=== PATIENT | male | born 1995 | race Caucasian/White ===

== ENCOUNTER 2020-09-02 13:20 | Observation (INO) | payer OTHER ==
--- NOTE | 2020-09-02 13:38 | ED ---
Abdominal Pain HPI - General Chief Complaint: Abdominal Pain Stated Complaint: constipation Time Seen by Provider: 09/02/20 13:25 Source: patient Mode of arrival: ambulatory Limitations: no limitations - History of Present Illness Initial Comments: Is a 24-year-old male who presents emergency department for abdominal pain for the last 3-4 days. The patient states that he's been having intermittent episodes of intense right-sided abdominal pain for the last 3 or 4 days. The patient states he is also not had a normal bowel movement the last 3 or 4 days as well. He states that he believes that he is constipated. He does admit to passing flatus however. He states is been no blood in the stool. He tried using some stool softeners however states that this has not given him any relief. The patient states that he did use an inflatable toys in his rectum therefore days ago when he believes that this is what causes problems. He states these use this in the past without any issue. He admits to vomiting 3 days ago that he believes is from the pain. States the pain is worse with bending over. No fevers or chills. No dysuria or hematuria. No other acute complaints. - Related Data Home Medications Medication Instructions Recorded Confirmed No Known Home Medications 09/02/20 09/02/20 Allergies Allergy/AdvReac Type Severity Reaction Status Date / Time No Known Allergies Allergy Verified 09/02/20 15:29 Review of Systems ROS Statement: Those systems with pertinent positive or pertinent negative responses have been documented in the HPI. ROS Other: All systems not noted in ROS Statement are negative. Past Medical History Additional Past Medical History / Comment(s): back pain, History of Any Multi-Drug Resistant Organisms: None Reported Past Surgical History: No Surgical Hx Reported Past Psychological History: No Psychological Hx Reported Smoking Status: Current every day smoker Past Alcohol Use History: None Reported Past Drug Use History: Marijuana General Exam - General Exam Comments Initial Comments: Constitutional: Awake alert Appears comfortable Head: Normocephalic atraumatic Eyes: no conjunctival injection No scleral icterus EOMI Neck: No JVD Supple Heart: Regular rate rhythm normal S1-S2 no murmurs Lungs: Clear to auscultation bilaterally No wheezing No rales Abdomen: Soft nondistended ears tenderness to palpation in the right lower quadrant over McBurney's point without rebound or guarding Extremities: Non edematous DP pulses intact Radial pulses intact Neuro: A&Ox3 No focal neurologic deficits Psych: Appropriate mood and affect Limitations: no limitations Course Vital Signs 09/02/20 09/02/20 13:21 15:24 Temperature 98.0 F 99.3 F Pulse Rate 92 95 Respiratory 18 18 Rate Blood Pressure 135/80 152/89 O2 Sat by Pulse 100 98 Oximetry Medical Decision Making - Medical Decision Making Is a 24-year-old male presents emergency room for right lower quadrant abdominal pain. Patient had blood work performed and a CAT scan consistent with appendicitis. The patient's vitals are stable throughout his ED stay. He did complain of a little bit of worsening pains was given morphine. He started on Rocephin and Flagyl for antibiotic coverage. Covid will be performed. Spoke with Dr. Silva who accepted the patient for admission will likely take for surgery later today. - Lab Data Result diagrams: 09/02/20 13:38 09/02/20 13:38 Lab Results 09/02/20 09/02/20 09/02/20 Range/Units 13:38 13:38 13:38 WBC 14.0 H (3.8-10.6) k/uL RBC 5.28 (4.30-5.90) m/uL Hgb 16.3 (13.0-17.5) gm/dL Hct 47.1 (39.0-53.0) % MCV 89.1 (80.0-100.0) fL MCH 30.9 (25.0-35.0) pg MCHC 34.7 (31.0-37.0) g/dL RDW 12.1 (11.5-15.5) % Plt Count 193 (150-450) k/uL MPV 8.2 Neutrophils % 85 % Lymphocytes % 9 % Monocytes % 4 % Eosinophils % 1 % Basophils % 0 % Neutrophils # 12.0 H (1.3-7.7) k/uL Lymphocytes # 1.2 (1.0-4.8) k/uL Monocytes # 0.5 (0-1.0) k/uL Eosinophils # 0.2 (0-0.7) k/uL Basophils # 0.0 (0-0.2) k/uL Sodium 139 (137-145) mmol/L Potassium 4.0 (3.5-5.1) mmol/L Chloride 104 (98-107) mmol/L Carbon Dioxide 24 (22-30) mmol/L Anion Gap 11 mmol/L BUN 11 (9-20) mg/dL Creatinine 1.16 (0.66-1.25) mg/dL Est GFR (CKD-EPI)AfAm >90 (>60 ml/min/1.73 sqM) Est GFR (CKD-EPI)NonAf 90 (>60 ml/min/1.73 sqM) Glucose 118 H (74-99) mg/dL Calcium 10.1 (8.4-10.2) mg/dL Total Bilirubin 1.2 (0.2-1.3) mg/dL AST 20 (17-59) U/L ALT 16 (4-49) U/L Alkaline Phosphatase 78 (38-126) U/L Total Protein 7.7 (6.3-8.2) g/dL Albumin 4.7 (3.5-5.0) g/dL Urine Color Yellow Urine Appearance Clear (Clear) Urine pH 6.0 (5.0-8.0) Ur Specific [place] 1.024 (1.001-1.035) Urine Protein Trace H (Negative) Urine Glucose (UA) Negative (Negative) Urine Ketones Negative (Negative) Urine Blood Negative (Negative) Urine Nitrite Negative (Negative) Urine Bilirubin Negative (Negative) Urine Urobilinogen <2.0 (<2.0) mg/dL Ur Leukocyte Esterase Negative (Negative) Disposition Clinical Impression: Acute appendicitis Disposition: ADMITTED IP TO THIS [facility] Condition: Stable
[2020-09-02 13:49] LABS: Appearance,Urine Clear (Clear); Bilirubin,Urine Negative (Negative); Blood,Urine Negative (Negative); Color,Urine Yellow; Glucose,Urine (UA) Negative (Negative); Ketones,Urine Negative (Negative); Leukocyte Esterase,Urine Negative (Negative); Nitrite,Urine Negative (Negative); Protein,Urine Trace (Negative); Specific Gravity,Urine 1.024 (1.001-1.035); Urobilinogen,Urine <2.0 mg/dL (<2.0)
[2020-09-02 14:11] LABS: Basophils % (A) 0 %; Eosinophils # (A) 0.2 k/uL (0-0.7); Eosinophils % (A) 1 %; HCT 47.1 % (39.0-53.0); HGB 16.3 gm/dL (13.0-17.5); Lymphocytes # (A) 1.2 k/uL (1.0-4.8); Lymphocytes % (A) 9 %; MCH 30.9 pg (25.0-35.0); MCHC 34.7 g/dL (31.0-37.0); MCV 89.1 fL (80.0-100.0); Mean Platelet Volume 8.2; Monocytes # (A) 0.5 k/uL (0-1.0); Monocytes % (A) 4 %; Neutrophils % (A) 85 %; Platelet Count 193 k/uL (150-450); RBC 5.28 m/uL (4.30-5.90); RDW 12.1 % (11.5-15.5)
[2020-09-02 14:24] LABS: ALT 16 U/L (4-49); AST 20 U/L (17-59); African American GFR (CKD) >90 (>60 ml/min/1.73 sqM); Albumin 4.7 g/dL (3.5-5.0); Alkaline Phosphatase 78 U/L (38-126); Anion Gap 11 mmol/L; Blood Urea Nitrogen 11 mg/dL (9-20); Calcium 10.1 mg/dL (8.4-10.2); Carbon Dioxide 24 mmol/L (22-30); Chloride 104 mmol/L (98-107); Glucose 118 mg/dL (74-99); Non-African American GFR(CKD) 90 (>60 ml/min/1.73 sqM); Sodium 139 mmol/L (137-145); Total Bilirubin 1.2 mg/dL (0.2-1.3); Total Protein 7.7 g/dL (6.3-8.2)
--- NOTE | 2020-09-02 14:45 | CT ---
EXAMINATION TYPE: CT abdomen pelvis w con DATE OF EXAM: 09/02/2020 COMPARISON: None HISTORY: Right lower quadrant pain. CT DLP: 1081.7 mGycm Automated exposure control for dose reduction was used. TECHNIQUE: Helical acquisition of images was performed from the lung bases through the pelvis. CONTRAST: Performed without Oral Contrast and with IV Contrast, patient injected with 100 mL of Isovue 300. FINDINGS: The lung bases are clear. The gallbladder is normal. There is no biliary ductal dilatation. The liver, pancreas, spleen and adr enal glands are normal. The kidneys excrete contrast promptly and symmetrically and there is no solid renal mass or hydroneph rosis. There is no retroperitoneal adenopathy or hemorrhage in the caliber of the abdominal aorta is normal. There is no free intraperitoneal air. There is an appendicolith in the appendix is dilated with a thickened wall and periappendiceal inflam mation consistent with acute appendicitis. There is no bowel obstruction. The osseous structures and soft tissues are unremarkable. IMPRESSION: Findings consistent with acute appendicitis without abscess, free air or free fluid.
[2020-09-02] MEDS ORDERED: MORPHINE SULFATE 4 MG/ML SYRINGE IVP STA (15:23)
[2020-09-02] MEDS ORDERED: metroNIDAZOLE-NS PMX 500 MG in SALINE 1 100ML.BAG IVPB STA (15:23)
[2020-09-02] MEDS ORDERED: NALOXONE 0.4 MG/ML 1 ML VIAL IV PRN (15:26)
[2020-09-02] MEDS: SODIUM CHLORIDE 0.9% 1,000 ML IV SCH ×2 (15:31→23:49)
[2020-09-02 16:25] LABS: Partial Thromboplastin Time 25.2 sec (22.0-30.0); Prothrombin Time 10.8 sec (9.0-12.0)
[2020-09-02] MEDS ORDERED: LIDOCAINE 1%-EPI 1:100,000 20 ML VIAL SQ ONE ×2 (17:01→17:30)
[2020-09-02] MEDS ORDERED: LACTATED RINGERS 1,000 ML IV ONE (17:12)
[2020-09-02] MEDS ORDERED: MIDAZOLAM 2 MG/2 ML VIAL ONE (17:13)
[2020-09-02] MEDS ORDERED: HEPARIN SODIUM,PORCINE 5,000 UNIT/ML 1 ML VIAL ONE (17:13)
[2020-09-02] MEDS ORDERED: fentaNYL (PF) 50 MCG/ML 2 ML AMP ONE (17:13)
[2020-09-02] MEDS ORDERED: KETOROLAC 15 MG/ML 1 ML VIAL ONE (17:13)
[2020-09-02] MEDS ORDERED: DEXAMETHASONE SOD PHOSPHATE 10 MG/ML 1 ML VIAL ONE (17:13)
[2020-09-02] MEDS ORDERED: ROCURONIUM 10 MG/ML (5 ML VIAL) IV ONE (17:13)
[2020-09-02] MEDS ORDERED: ONDANSETRON 4 MG/2 ML VIAL ONE (17:13)
[2020-09-02] MEDS ORDERED: LIDOCAINE 1% INJ 10MG/ML (20 ML MDV) ONE (17:13)
[2020-09-02] MEDS ORDERED: PROPOFOL 10 MG/ML 20 ML VIAL IV ONE (17:13)
[2020-09-02] MEDS ORDERED: HYDROmorphone (PF) 1 MG/ML ONE (17:13)
--- NOTE | 2020-09-02 17:18 | P.GSHP ---
History of Present Illness H&P Date: 09/02/20 This is a 24-year-old male that presented to the emergency department with complaints of abdominal pain. It has been going on for approximately 3 days. The patient initially thought it was constipation. He states that the pain is mostly in the right lower quadrant. He complains of some nausea and 1 emesis episode. He denies any obvious fevers. He states he has a decreased appetite. On workup, CT of the abdomen and pelvis was performed with concerns for acute appendicitis due to inflammatory changes around the appendix. He is also noted to have a mild leukocytosis. He denies having any previous surgical history. - Review of Systems All systems: negative Past Medical History Additional Past Medical History / Comment(s): back pain, History of Any Multi-Drug Resistant Organisms: None Reported Past Surgical History: No Surgical Hx Reported Past Psychological History: No Psychological Hx Reported Smoking Status: Current every day smoker Past Alcohol Use History: None Reported Past Drug Use History: Marijuana Medications and Allergies Home Medications Medication Instructions Recorded Confirmed Type No Known Home Medications 09/02/20 09/02/20 History Allergies Allergy/AdvReac Type Severity Reaction Status Date / Time No Known Allergies Allergy Verified 09/02/20 15:29 Surgical - Exam Osteopathic Statement: *. No significant issues noted on an osteopathic structural exam other than those noted in the History and Physical/Consult. Vital Signs Temp Pulse Resp BP Pulse Ox 98.0 F 92 18 135/80 100 09/02/20 13:21 09/02/20 13:21 09/02/20 13:21 09/02/20 13:21 09/02/20 13:21 - General well nourished, no distress - Eyes PERRL - Neck trachea midline - Respiratory normal respiratory effort - Abdomen Soft, tender to palpation in right lower quadrant, nondistended, no rebound, no guarding - Psychiatric oriented to time, oriented to person, oriented to place Results - Labs 09/02/20 13:38 09/02/20 13:38 Abnormal Lab Results - Last 24 Hours (Table) 09/02/20 09/02/20 09/02/20 Range/Units 13:38 13:38 13:38 WBC 14.0 H (3.8-10.6) k/uL Neutrophils # 12.0 H (1.3-7.7) k/uL Glucose 118 H (74-99) mg/dL Urine Protein Trace H (Negative) Diabetes panel 09/02/20 Range/Units 13:38 Sodium 139 (137-145) mmol/L Potassium 4.0 (3.5-5.1) mmol/L Chloride 104 (98-107) mmol/L Carbon Dioxide 24 (22-30) mmol/L BUN 11 (9-20) mg/dL Creatinine 1.16 (0.66-1.25) mg/dL Glucose 118 H (74-99) mg/dL Calcium 10.1 (8.4-10.2) mg/dL AST 20 (17-59) U/L ALT 16 (4-49) U/L Alkaline Phosphatase 78 (38-126) U/L Total Protein 7.7 (6.3-8.2) g/dL Albumin 4.7 (3.5-5.0) g/dL Calcium panel 09/02/20 Range/Units 13:38 Calcium 10.1 (8.4-10.2) mg/dL Albumin 4.7 (3.5-5.0) g/dL Pituitary panel 09/02/20 Range/Units 13:38 Sodium 139 (137-145) mmol/L Potassium 4.0 (3.5-5.1) mmol/L Chloride 104 (98-107) mmol/L Carbon Dioxide 24 (22-30) mmol/L BUN 11 (9-20) mg/dL Creatinine 1.16 (0.66-1.25) mg/dL Glucose 118 H (74-99) mg/dL Calcium 10.1 (8.4-10.2) mg/dL Adrenal panel 09/02/20 Range/Units 13:38 Sodium 139 (137-145) mmol/L Potassium 4.0 (3.5-5.1) mmol/L Chloride 104 (98-107) mmol/L Carbon Dioxide 24 (22-30) mmol/L BUN 11 (9-20) mg/dL Creatinine 1.16 (0.66-1.25) mg/dL Glucose 118 H (74-99) mg/dL Calcium 10.1 (8.4-10.2) mg/dL Total Bilirubin 1.2 (0.2-1.3) mg/dL AST 20 (17-59) U/L ALT 16 (4-49) U/L Alkaline Phosphatase 78 (38-126) U/L Total Protein 7.7 (6.3-8.2) g/dL Albumin 4.7 (3.5-5.0) g/dL Assessment and Plan Plan: 24-year-old male with acute appendicitis. Patient has been started on IV antibiotics and kept nothing by mouth. Plan is for appendectomy. Risks, benefits and alternatives were provided to the patient. Further recommend patient after procedure.
[2020-09-02] MEDS ORDERED: MORPHINE SULFATE 2 MG/ML SYRINGE IVP PRN (18:05)
--- NOTE | 2020-09-02 18:09 | P.OP ---
Date of Procedure: 09/02/20 Preoperative Diagnosis: Acute appendicitis Postoperative Diagnosis: Acute appendicitis Procedure(s) Performed: Laparoscopic appendectomy Anesthesia: KEVON Surgeon: Arlen Silva Pathology: other (Appendix) Condition: stable Disposition: floor Indications for Procedure: 22-year-old male presented to the emergency department with complaints of right lower quadrant abdominal pain. On workup, he was found to have acute appendicitis. Plan for appendectomy was made. Risks, benefits and alternatives were provided to the patient. He did provide consent prior to attending the operating suite. Operative Findings: Inflamed and thickened appendix Description of Procedure: The patient was brought into the operating suite and placed in supine position on the operating table. Sedation was provided by anesthesia and the patient underwent endotracheal intubation. The patient was then prepped and draped in regular sterile fashion. A super umbilical incision was made dissection was carried to the fascia. The fascia was incised and a 12 mm trocar was placed. Pneumoperitoneum was achieved. The patient was then placed in appropriate position and a 5 mm port was placed in the suprapubic region and in the left lower quadrant. The appendix was clearly visualized and was noted to be inflamed and thickened. The appendix was grasped and elevated and a window was created between the appendix and the mesoappendix using a [place] dissector. LigaSure device was then used to divide the mesoappendix from the appendix. The stasis was maintained during this portion of the procedure. The base of the appendix was then clearly visualized. A stapler was fired across the base of the appendix. The appendix was then placed in an Endo Catch bag and removed from the abdomen from the 12 mm trocar site. Interrogation of the staple line revealed some mild bleeding. This was corrected with light cautery. Hemostasis was noted to be maintained at this point. Irrigation was placed in the right lower quadrant and suctioned. At this point, the pulmonary millimeter fascial incision site was closed using a 0 Vicryl suture under direct visualization and a Robert-Kevin device. Pneumoperitoneum was then evacuated and all ports removed from the abdomen. All skin incisions were closed with 4-0 Vicryl subcutaneous suture. Sterile dressing was applied. The patient was awakened in the operating suite and taken to postanesthesia care unit in stable condition.
[2020-09-02 19:20] VITALS: RESP 18
[2020-09-02] MEDS: HYDROcodone/APAP 5-325MG 1 EACH TAB PO PRN (19:48)
[2020-09-02] MEDS: PIPERACILLIN-TAZOBACTAM 3.375 GM in SODIUM CHLORIDE 0.9% 100 ML IVPB SCH (23:49)
[2020-09-02] MEDS: KETOROLAC 15 MG/ML 1 ML VIAL IVP SCH (23:50)
[2020-09-02] MEDS: HEPARIN SODIUM,PORCINE/PF 5,000 UNIT/0.5 ML SYRINGE SQ SCH (23:50)
[2020-09-03] MEDS: HYDROcodone/APAP 5-325MG 1 EACH TAB PO PRN ×3 (01:22→14:06)
[2020-09-03] MEDS: KETOROLAC 15 MG/ML 1 ML VIAL IVP SCH ×2 (05:35→11:06)
[2020-09-03 08:06] VITALS: BP 153/71; PULSE 68; TEMP 98.5
[2020-09-03] MEDS: PIPERACILLIN-TAZOBACTAM 3.375 GM in SODIUM CHLORIDE 0.9% 100 ML IVPB SCH (08:09)
[2020-09-03] MEDS: HEPARIN SODIUM,PORCINE/PF 5,000 UNIT/0.5 ML SYRINGE SQ SCH (08:09)
[2020-09-03] MEDS: SODIUM CHLORIDE 0.9% 1,000 ML IV SCH (08:09)
[2020-09-03 09:04] LABS: Basophils # (A) 0.01 X 10*3/uL (0.00-0.10); Basophils % (A) 0.1 %; Eosinophils # (A) 0 X 10*3/uL (0.04-0.35); Eosinophils % (A) 0 %; HCT 45.1 % (39.6-50.0); Lymphocytes # (A) 0.86 X 10*3/uL (0.90-5.00); Lymphocytes % (A) 6.2 %; MCH 30.1 pg (27.0-32.0); MCHC 33.3 g/dL (32.0-37.0); MCV 90.6 fL (80.0-97.0); Mean Platelet Volume 11.7 fL (9.5-12.2); Monocytes # (A) 0.67 X 10*3/uL (0.20-1.00); Monocytes % (A) 4.8 %; Neutrophils # (A) 12.32 X 10*3/uL (1.80-7.70); Neutrophils % (A) 88.5 %; Platelet Count 225 X 10*3/uL (140-440); RBC 4.98 X 10*6/uL (4.40-5.60); RDW 12.6 % (11.5-14.5); WBC 13.92 X 10*3/uL (4.50-10.00)
[2020-09-03] MEDS ORDERED: DOCUSATE 100 MG CAP PO PRN (09:32)
[2020-09-03 09:33] LABS: African American GFR (CKD) 98.9 (60.0-200.0); Anion Gap 9.9 mmol/L (4.00-12.00); BUN/Creat Ratio 8.33 Ratio (12.00-20.00); Calcium 9.6 mg/dL (8.7-10.3); Carbon Dioxide 23.1 mmol/L (21.6-31.8); Non-African American GFR(CKD) 85.3 (60.0-200.0); Potassium 4.2 mmol/L (3.5-5.5)
--- NOTE | 2020-09-03 09:35 | P.DS ---
Providers Date of admission: 09/02/20 15:26 Attending physician: Arlen Silva DO Primary care physician: Sheldon [facility] Course: 24-year-old male presented to the emergency department with complaints of abdominal pain. On workup, he was found to have acute appendicitis. He was taken for laparoscopic appendectomy. Postoperatively, patient was sent to the medical surgical floor. He did receive IV antibiotics. His pain level did improve. He began tolerating diet. No evidence of fevers or tachycardia. Patient was notably surgically stable for discharge. Plan is for discharge with oral narcotic pain medication and 1 week of oral antibiotics. Patient is aware to return to the hospital if any increase in pain, fevers or abnormal recovery. Assessment: Abdomen is soft, appropriate tenderness, nondistended, no rebound, no guarding, incision sites are clean, dry and intact Procedures: Laparoscopic appendectomy Patient Condition at Discharge: Stable Plan - Discharge Summary New Discharge Prescriptions: New Docusate [Colace] 100 mg PO BID #20 capsule HYDROcodone/APAP 5-325MG [[place] 5-325] 1 tab PO Q6HR PRN 3 Days #12 tab PRN Reason: Pain Amoxic-Pot Clav 500-125 mg [Augmentin 500-125 mg] 1 tab PO Q12HR 7 Days #14 tab Discharge Medication List Amoxic-Pot Clav 500-125 mg [Augmentin 500-125 mg] 1 tab PO Q12HR 7 Days #14 tab 09/03/20 [Rx] Docusate [Colace] 100 mg PO BID #20 capsule 09/03/20 [Rx] HYDROcodone/APAP 5-325MG [[place] 5-325] 1 tab PO Q6HR PRN 3 Days #12 tab 09/03/20 [Rx] Follow up Appointment(s)/Referral(s): Sheldon Sullivan MD [Primary Care Provider] - 1-2 days Arlen Silva DO [Doctor of Osteopathic Medicine] - 2 Weeks Patient Instructions/Handouts: Laparoscopic Appendectomy (DC) Activity/Diet/Wound Care/Special Instructions: No lifting greater than 5 pounds Okay to begin to shower, do not scrub on incisions Take narcotic pain medication as necessary. If taking narcotic pain medication, take stool softener. Take antibiotic as prescribed. Discharge Disposition: HOME SELF-CARE
== END 2020-09-03 14:30 | disposition home or self-care (01) ==
LOC: EC 13:20 → 6NMEDSUR 15:26
PROVIDERS: ADMIT Surgery; ATTEND Surgery
DX: K35.80 Unspecified acute appendicitis (principal); K59.00 Constipation, unspecified; M54.9 Dorsalgia, unspecified; F17.200 Nicotine dependence, unspecified, uncomplicated; Z20.822 Contact with and (suspected) exposure to COVID-19
CPT/HCPCS: 44970; 99285; 36415; 88304; 80053; 80048; 85025 ×2; 85610; 85730; 81003; 87636; 74177; G0378 ×2; J2543 ×2; J2250; J2270; J1644 ×3; J1100; J2405; J2001; J0696; J3010; J1170; J1885 ×2; J2704; Q9967

== ENCOUNTER 2020-09-04 20:52 | Emergency (ER) | payer OTHER ==
--- NOTE | 2020-09-04 22:36 | XR ---
EXAMINATION TYPE: XR chest 2V DATE OF EXAM: 09/04/2020 COMPARISON: None HISTORY: Short of breath TECHNIQUE: 2 views FINDINGS: Heart and mediastinum are normal. Lungs are clear. Diaphragm is normal. There is small amou nt of free air under the right diaphragm related to recent surgery. The bony thorax is intact. IMPRESSION: No cardiopulmonary disease.
--- NOTE | 2020-09-04 22:39 | ED ---
SOB HPI - General Chief Complaint: Shortness of Breath Stated Complaint: SOB Time Seen by Provider: 09/04/20 21:10 Source: patient Mode of arrival: ambulatory Limitations: no limitations - History of Present Illness Initial Comments: 24-year-old male presents emergency room with reported shortness of breath. Patient did have an appendectomy 2 days ago. States that today he had shortness of breath and therefore wanted to get checked out. Denies cough, fevers or chills. No chest pain. No history of DVT or PE. No lower extremity swelling. No other alleviating, precipitating or modifying factors. - Related Data Home Medications Medication Instructions Recorded Confirmed Docusate [Colace] 100 mg PO BID PRN 09/04/20 09/04/20 Previous Rx's Medication Instructions Recorded Amoxic-Pot Clav 500-125 mg 1 tab PO Q12HR 7 Days #14 tab 09/03/20 [Augmentin 500-125 mg] HYDROcodone/APAP 5-325MG [[place] 1 tab PO Q6HR PRN 3 Days #12 tab 09/03/20 5-325] Allergies Allergy/AdvReac Type Severity Reaction Status Date / Time No Known Allergies Allergy Verified 09/04/20 22:40 Review of Systems ROS Statement: Those systems with pertinent positive or pertinent negative responses have been documented in the HPI. ROS Other: All systems not noted in ROS Statement are negative. Past Medical History Past Medical History: No Reported History Additional Past Medical History / Comment(s): back pain,scoliosis History of Any Multi-Drug Resistant Organisms: None Reported Past Surgical History: Appendectomy Past Anesthesia/Blood Transfusion Reactions: No Reported Reaction Past Psychological History: Anxiety, Depression Smoking Status: Current every day smoker Past Alcohol Use History: None Reported Past Drug Use History: Marijuana - Past Family History Mother Family Medical History: Hypertension Father Family Medical History: Hypertension General Exam Limitations: no limitations Course Vital Signs 09/04/20 09/04/20 21:09 22:19 Temperature 97.7 F Pulse Rate 64 Respiratory 18 20 Rate Blood Pressure 135/84 O2 Sat by Pulse 100 Oximetry Medical Decision Making - Medical Decision Making Upon arrival patient's placed into room 5. There was seen physical exam was performed. Laboratory studies conducted. D-dimer negative. Chest x-ray demonstrates no acute process. Patient is saturating percent without increased work of breathing. He'll be discharged home at this time. Follow up with his surgeon as directed. Return to the emergency room for any new or worsening symptoms. Patient was discharged in stable condition - Lab Data Result diagrams: 09/04/20 22:33 09/04/20 22:33 Lab Results 09/04/20 09/04/20 09/04/20 Range/Units 22:33 22:33 22:33 WBC 7.2 (3.8-10.6) k/uL RBC 5.09 (4.30-5.90) m/uL Hgb 15.2 (13.0-17.5) gm/dL Hct 45.5 (39.0-53.0) % MCV 89.3 (80.0-100.0) fL MCH 29.9 (25.0-35.0) pg MCHC 33.5 (31.0-37.0) g/dL RDW 12.7 (11.5-15.5) % Plt Count 221 (150-450) k/uL MPV 8.5 Neutrophils % 68 % Lymphocytes % 22 % Monocytes % 6 % Eosinophils % 1 % Basophils % 0 % Neutrophils # 4.9 (1.3-7.7) k/uL Lymphocytes # 1.6 (1.0-4.8) k/uL Monocytes # 0.5 (0-1.0) k/uL Eosinophils # 0.1 (0-0.7) k/uL Basophils # 0.0 (0-0.2) k/uL D-Dimer 0.47 (<0.60) mg/L FEU Sodium 140 (137-145) mmol/L Potassium 3.9 (3.5-5.1) mmol/L Chloride 105 (98-107) mmol/L Carbon Dioxide 24 (22-30) mmol/L Anion Gap 11 mmol/L BUN 13 (9-20) mg/dL Creatinine 1.09 (0.66-1.25) mg/dL Est GFR (CKD-EPI)AfAm >90 (>60 ml/min/1.73 sqM) Est GFR (CKD-EPI)NonAf >90 (>60 ml/min/1.73 sqM) Glucose 98 (74-99) mg/dL Plasma Lactic Acid Karel (0.7-2.0) mmol/L Calcium 10.2 (8.4-10.2) mg/dL Total Bilirubin 0.8 (0.2-1.3) mg/dL AST 25 (17-59) U/L ALT 16 (4-49) U/L Alkaline Phosphatase 69 (38-126) U/L Total Protein 7.4 (6.3-8.2) g/dL Albumin 4.6 (3.5-5.0) g/dL 09/04/20 Range/Units 22:33 WBC (3.8-10.6) k/uL RBC (4.30-5.90) m/uL Hgb (13.0-17.5) gm/dL Hct (39.0-53.0) % MCV (80.0-100.0) fL MCH (25.0-35.0) pg MCHC (31.0-37.0) g/dL RDW (11.5-15.5) % Plt Count (150-450) k/uL MPV Neutrophils % % Lymphocytes % % Monocytes % % Eosinophils % % Basophils % % Neutrophils # (1.3-7.7) k/uL Lymphocytes # (1.0-4.8) k/uL Monocytes # (0-1.0) k/uL Eosinophils # (0-0.7) k/uL Basophils # (0-0.2) k/uL D-Dimer (<0.60) mg/L FEU Sodium (137-145) mmol/L Potassium (3.5-5.1) mmol/L Chloride (98-107) mmol/L Carbon Dioxide (22-30) mmol/L Anion Gap mmol/L BUN (9-20) mg/dL Creatinine (0.66-1.25) mg/dL Est GFR (CKD-EPI)AfAm (>60 ml/min/1.73 sqM) Est GFR (CKD-EPI)NonAf (>60 ml/min/1.73 sqM) Glucose (74-99) mg/dL Plasma Lactic Acid [place] 1.1 (0.7-2.0) mmol/L Calcium (8.4-10.2) mg/dL Total Bilirubin (0.2-1.3) mg/dL AST (17-59) U/L ALT (4-49) U/L Alkaline Phosphatase (38-126) U/L Total Protein (6.3-8.2) g/dL Albumin (3.5-5.0) g/dL - EKG Data EKG Comments: EKG demonstrates a sinus rhythm with a ventricular rate of 74. [place] interval 136. QRS 112. QTC is 399. Inverted T waves in the inferior and lateral leads Disposition Clinical Impression: Respiratory insufficiency Disposition: HOME SELF-CARE Condition: Stable Instructions (If sedation given, give patient instructions): Shortness of Breath (ED) Additional Instructions: Please follow up with PCP in 2-4 days. Return to ED for any new or worsening symptoms. Is patient prescribed a controlled substance at d/c from ED?: No Referrals: Sheldon Sullivan MD [Primary Care Provider] - 1-2 days Time of Disposition: 23:13
[2020-09-04 22:43] LABS: Basophils % (A) 0 %; Eosinophils # (A) 0.1 k/uL (0-0.7); Eosinophils % (A) 1 %; HCT 45.5 % (39.0-53.0); HGB 15.2 gm/dL (13.0-17.5); Lymphocytes # (A) 1.6 k/uL (1.0-4.8); Lymphocytes % (A) 22 %; MCH 29.9 pg (25.0-35.0); MCHC 33.5 g/dL (31.0-37.0); MCV 89.3 fL (80.0-100.0); Mean Platelet Volume 8.5; Monocytes # (A) 0.5 k/uL (0-1.0); Monocytes % (A) 6 %; Neutrophils # (A) 4.9 k/uL (1.3-7.7); Neutrophils % (A) 68 %; Platelet Count 221 k/uL (150-450); RBC 5.09 m/uL (4.30-5.90); RDW 12.7 % (11.5-15.5); WBC 7.2 k/uL (3.8-10.6)
[2020-09-04 22:52] LABS: ALT 16 U/L (4-49); AST 25 U/L (17-59); African American GFR (CKD) >90 (>60 ml/min/1.73 sqM); Albumin 4.6 g/dL (3.5-5.0); Alkaline Phosphatase 69 U/L (38-126); Anion Gap 11 mmol/L; Blood Urea Nitrogen 13 mg/dL (9-20); Calcium 10.2 mg/dL (8.4-10.2); Carbon Dioxide 24 mmol/L (22-30); Chloride 105 mmol/L (98-107); Glucose 98 mg/dL (74-99); Non-African American GFR(CKD) >90 (>60 ml/min/1.73 sqM); Potassium 3.9 mmol/L (3.5-5.1); Sodium 140 mmol/L (137-145); Total Bilirubin 0.8 mg/dL (0.2-1.3); Total Protein 7.4 g/dL (6.3-8.2)
[2020-09-05 00:17] VITALS: BP 138/76; PULSE 98; RESP 18; TEMP 98.1
== END 2020-09-05 00:17 | disposition home or self-care (01) ==
LOC: EC 20:52
DX: R06.89 Other abnormalities of breathing (principal); F32.9 Major depressive disorder, single episode, unspecified; F17.200 Nicotine dependence, unspecified, uncomplicated; F12.90 Cannabis use, unspecified, uncomplicated; Z90.49 Acquired absence of other specified parts of digestive tract
CPT/HCPCS: 36415; 71046; 80053; 83605; 85025; 85379; 93005; 99285

== ENCOUNTER 2020-11-06 23:12 | Emergency (ER) | payer OTHER ==
[2020-11-06 23:22] VITALS: BP 134/63; PULSE 72; RESP 18; TEMP 98.2
[2020-11-06] MEDS ORDERED: ONDANSETRON 4 MG ODT STARTER PACK 2 TAB BTL PO STA (23:50)
--- NOTE | 2020-11-06 23:54 | ED ---
General Adult HPI - General Chief complaint: Urogenital Stated complaint: Urogenital Time Seen by Provider: 11/06/20 23:26 Source: patient Mode of arrival: ambulatory Limitations: no limitations - History of Present Illness Initial comments: Patient is a 24-year-old male presenting to the emergency department with a few separate complaints. Patient states he has been having some nausea on and off over the past month since his appendectomy. He was concerned that this may not be normal. He states he also sometimes gets "sweaty when he is having a bowel movement." He also developed a few hemorrhoids since his surgery as well. He denies any diarrhea, no abdominal pain. He denies any recent fevers or chills, no chest pain or shortness of breath. He states he does smoke a lot of marijuana and Vapes a lot as well. Denies any alcohol. He has no further complaints at this time. - Related Data Home Medications Medication Instructions Recorded Confirmed Docusate [Colace] 100 mg PO BID PRN 09/04/20 09/04/20 Previous Rx's Medication Instructions Recorded Amoxic-Pot Clav 500-125 mg 1 tab PO Q12HR 7 Days #14 tab 09/03/20 [Augmentin 500-125 mg] HYDROcodone/APAP 5-325MG [[place] 1 tab PO Q6HR PRN 3 Days #12 tab 09/03/20 5-325] Allergies Allergy/AdvReac Type Severity Reaction Status Date / Time No Known Allergies Allergy Verified 11/06/20 23:22 Review of Systems ROS Statement: Those systems with pertinent positive or pertinent negative responses have been documented in the HPI. ROS Other: All systems not noted in ROS Statement are negative. Past Medical History Past Medical History: No Reported History Additional Past Medical History / Comment(s): back pain,scoliosis History of Any Multi-Drug Resistant Organisms: None Reported Past Surgical History: Appendectomy Past Anesthesia/Blood Transfusion Reactions: No Reported Reaction Past Psychological History: Anxiety, Depression Smoking Status: Current every day smoker Past Alcohol Use History: None Reported Past Drug Use History: Marijuana - Past Family History Mother Family Medical History: Hypertension Father Family Medical History: Hypertension General Exam - General Exam Comments Initial Comments: GENERAL: Patient is well-developed and well-nourished. Patient is nontoxic and in no acute distress. HEAD: Atraumatic, normocephalic. EYES: Pupils equal round and reactive to light, extraocular movements intact, sclera anicteric, conjunctiva are normal. Eyelids were unremarkable. ENT: Nares patent, oropharynx clear without exudates. Moist mucous membranes. NECK: Normal range of motion, supple without lymphadenopathy or JVD. LUNGS: Unlabored respirations. Breath sounds clear to auscultation bilaterally and equal. No wheezes rales or rhonchi. HEART: Regular rate and rhythm without murmurs, rubs or gallops. ABDOMEN: Soft, nontender, normoactive bowel sounds. No guarding, no rebound. No masses appreciated. : Deferred MUSCULOSKELETAL: Normal extremities with adequate strength and normal range of motion, no pitting or edema. No clubbing or cyanosis. SKIN: Warm, Dry, normal turgor, no rashes or lesions noted. Limitations: no limitations Course Vital Signs 11/06/20 23:20 Temperature 98.2 F Pulse Rate 72 Respiratory 18 Rate Blood Pressure 134/63 O2 Sat by Pulse 100 Oximetry Medical Decision Making - Medical Decision Making Patient is a 24-year-old male here for multiple complaints but mostly because of nausea. He had an appendectomy one month ago and has been having intermittent nausea since. He still been eating and drinking as normal, having regular bowel movements. He did develop a few little hemorrhoids since the surgery. His exam is normal, no abdominal pain on palpation. He's had no active bleeding from his hemorrhoids. Discussed with patient and nausea can be normal after abdominal surgery. It could be food related or viral related as well. I will give him some Zofran to go home with. He is stable for discharge and follow-up with his family doctor. He is in agreement with this plan of care. Disposition Clinical Impression: Nausea Disposition: HOME SELF-CARE Condition: Stable Instructions (If sedation given, give patient instructions): Acute Nausea and Vomiting (ED) Additional Instructions: Please return to the Emergency Department if symptoms worsen or any other concerns. May take Zofran every 8 hours as needed for any nausea. Continue to increase your fluid intake. Follow-up with your family doctor. Is patient prescribed a controlled substance at d/c from ED?: No Referrals: Sheldon Sullivan MD [Primary Care Provider] - 1-2 days Time of Disposition: 23:53
== END 2020-11-07 00:05 | disposition home or self-care (01) ==
LOC: EC 23:12
DX: R11.0 Nausea (principal); F17.200 Nicotine dependence, unspecified, uncomplicated
CPT/HCPCS: 99283; S0119

== ENCOUNTER 2020-11-08 16:55 | Emergency (ER) | payer OTHER ==
[2020-11-08 16:58] VITALS: BP 130/71; PULSE 88; RESP 18; TEMP 97.7
[2020-11-08] MEDS ORDERED: IBUPROFEN 600 MG TAB PO STA (17:14)
--- NOTE | 2020-11-08 17:43 | ED ---
Recheck HPI - General Chief Complaint: Recheck/Abnormal Lab/Rx Stated Complaint: Covid test & back pain Time Seen by Provider: 11/08/20 17:01 Source: patient Mode of arrival: ambulatory Limitations: no limitations - History of Present Illness Initial Comments: 24-year-old male presents emergency Department with a chief complaint of Covid test. Patient reports a past 2-3 days he has been expensed sinus congestion with a nonproductive cough. States he is a smoker. Patient reports he does have occasional sore throat after coughing fits denies any fevers or chills. Denies any chest pain or shortness of breath. Patient is concerned for possible Covid even though he does not report any known exposure. He also reports back pain but states that is his chronic back pain due to scoliosis. - Related Data Home Medications Medication Instructions Recorded Confirmed Docusate [Colace] 100 mg PO BID PRN 09/04/20 09/04/20 Previous Rx's Medication Instructions Recorded Amoxic-Pot Clav 500-125 mg 1 tab PO Q12HR 7 Days #14 tab 09/03/20 [Augmentin 500-125 mg] HYDROcodone/APAP 5-325MG [[place] 1 tab PO Q6HR PRN 3 Days #12 tab 09/03/20 5-325] Cetirizine HCl/Pseudoephedrine 1 each PO DAILY #24 tab.er.12h 11/08/20 [Zyrtec-D Tablet] Ondansetron Odt [Zofran Odt] 4 mg PO Q8HR PRN #14 tab 11/08/20 Allergies Allergy/AdvReac Type Severity Reaction Status Date / Time No Known Allergies Allergy Verified 11/08/20 16:59 Review of Systems ROS Statement: Those systems with pertinent positive or pertinent negative responses have been documented in the HPI. ROS Other: All systems not noted in ROS Statement are negative. Past Medical History Past Medical History: No Reported History Additional Past Medical History / Comment(s): back pain,scoliosis History of Any Multi-Drug Resistant Organisms: None Reported Past Surgical History: Appendectomy Past Anesthesia/Blood Transfusion Reactions: No Reported Reaction Past Psychological History: Anxiety, Depression Smoking Status: Current every day smoker Past Alcohol Use History: None Reported Past Drug Use History: Marijuana - Past Family History Mother Family Medical History: Hypertension Father Family Medical History: Hypertension General Exam Limitations: no limitations General appearance: alert, in no apparent distress Head exam: Present: atraumatic, normocephalic, normal inspection Eye exam: Present: normal appearance, PERRL, EOMI Pupils: Present: normal accommodation ENT exam: Present: normal exam, normal oropharynx, mucous membranes moist, TM's normal bilaterally, normal external ear exam Neck exam: Present: normal inspection, full ROM. Absent: tenderness, lymphadenopathy Respiratory exam: Present: normal lung sounds bilaterally. Absent: respiratory distress Cardiovascular Exam: Present: regular rate, normal rhythm, normal heart sounds. Absent: systolic murmur Extremities exam: Present: normal inspection, normal capillary refill. Absent: full ROM, pedal edema Back exam: Present: normal inspection, full ROM. Absent: tenderness Neurological exam: Present: alert, oriented X3 Psychiatric exam: Present: normal affect, normal mood Skin exam: Present: warm, dry, intact, normal color Course Vital Signs 11/08/20 16:56 Temperature 97.7 F Pulse Rate 88 Respiratory 18 Rate Blood Pressure 130/71 O2 Sat by Pulse 98 Oximetry Medical Decision Making - Medical Decision Making 24-year-old male presents to the emergency department with a chief complaint of Covid testing. ENT examination is unremarkable. Lungs are clear to auscultation. Vital signs are within normal limits. Patient was given ibuprofen for his chronic back pain. Covid test is negative. Patient vised to return to emergency department if symptoms worsen. PCP follow-up. Also will give him Zyrtec for symptom control. He also requested Zofran. Case discussed with physician. - Lab Data Lab Results 11/08/20 Range/Units 17:05 Coronavirus (PCR) Not Detected (Not Detectd) Disposition Clinical Impression: Lab test negative for COVID-19 virus, URI (upper respiratory infection) Disposition: HOME SELF-CARE Condition: Stable Instructions (If sedation given, give patient instructions): Coronavirus Disease 2019 (COVID-19) Additional Instructions: Please return to the Emergency Department if symptoms worsen or any other concerns. Prescriptions: Ondansetron Odt [Zofran Odt] 4 mg PO Q8HR PRN #14 tab PRN Reason: Nausea Cetirizine HCl/Pseudoephedrine [Zyrtec-D Tablet] 1 each PO DAILY #24 tab.er.12h Is patient prescribed a controlled substance at d/c from ED?: No Referrals: Sheldon Sullivan MD [Primary Care Provider] - 1-2 days Time of Disposition: 17:43
== END 2020-11-08 17:55 | disposition home or self-care (01) ==
LOC: EC 16:55
DX: J06.9 Acute upper respiratory infection, unspecified (principal); G89.29 Other chronic pain; M54.9 Dorsalgia, unspecified; F17.200 Nicotine dependence, unspecified, uncomplicated; Z20.822 Contact with and (suspected) exposure to COVID-19
CPT/HCPCS: 87635; 99283

== ENCOUNTER 2020-11-18 07:32 | Emergency (ER) | payer OTHER ==
[2020-11-18 07:36] VITALS: BP 138/77; PULSE 77; RESP 16
--- NOTE | 2020-11-18 08:20 | XR ---
EXAMINATION TYPE: XR KUB DATE OF EXAM: 11/18/2020 COMPARISON: Limited comparison made to CT abdomen and pelvis dated 09/02/2020 HISTORY: 24 years Male. STUDY INDICATION GIVEN: Constipation TECHNIQUE: Upright abdominal radiographs FINDINGS AND IMPRESSION: No evidence of free abdominal air or bowel obstruction. Moderate amount of stool is seen in the colon. There may be some bowel thickening involving the sigmoid rectal colon. The need for and enhanced CT o f the abdomen and pelvis should be determined on clinical basis. No abnormal calcifications seen. No evidence of organomegaly. Lung bases are unremarkable. Minimal scoliosis in the lumbar spine noted, may be positional. No acute osseous abnormalities seen.
--- NOTE | 2020-11-18 08:27 | ED ---
Abdominal Pain HPI - General Chief Complaint: Abdominal Pain Stated Complaint: Constipation Time Seen by Provider: 11/18/20 07:36 Source: patient Mode of arrival: ambulatory Limitations: no limitations - History of Present Illness Initial Comments: Patient is a 24-year-old male presenting to emergency Department with complaints of concerns of constipation. Patient states ever since he had his appendix removed in August he has been having a lot of anxiety surrounding the surgery and his recovery. He states his pain has been minimal however he has not had a bowel movement and one day and is concerned for a blockage. He states has been "looking up a lot of things on the Internet and is concerned he has a severe blockage." He states he is not having much abdominal pain, maybe some mild discomfort, he is passing gas. No chest pain or shortness of breath, no fevers or chills, no nausea or vomiting, no diarrhea. He states he really would like an x-ray to able to see. He said no other abdominal surgeries. He has no further complaints. His vitals are stable upon arrival. - Related Data Home Medications Medication Instructions Recorded Confirmed Docusate [Colace] 100 mg PO BID PRN 09/04/20 09/04/20 Previous Rx's Medication Instructions Recorded Amoxic-Pot Clav 500-125 mg 1 tab PO Q12HR 7 Days #14 tab 09/03/20 [Augmentin 500-125 mg] HYDROcodone/APAP 5-325MG [[place] 1 tab PO Q6HR PRN 3 Days #12 tab 09/03/20 5-325] Cetirizine HCl/Pseudoephedrine 1 each PO DAILY #24 tab.er.12h 11/08/20 [Zyrtec-D Tablet] Ondansetron Odt [Zofran Odt] 4 mg PO Q8HR PRN #14 tab 11/08/20 Allergies Allergy/AdvReac Type Severity Reaction Status Date / Time No Known Allergies Allergy Verified 11/18/20 07:33 Review of Systems ROS Statement: Those systems with pertinent positive or pertinent negative responses have been documented in the HPI. ROS Other: All systems not noted in ROS Statement are negative. Past Medical History Past Medical History: No Reported History Additional Past Medical History / Comment(s): back pain,scoliosis History of Any Multi-Drug Resistant Organisms: None Reported Past Surgical History: Appendectomy Past Anesthesia/Blood Transfusion Reactions: No Reported Reaction Past Psychological History: Anxiety, Depression Smoking Status: Current every day smoker Past Alcohol Use History: None Reported Past Drug Use History: Marijuana - Past Family History Mother Family Medical History: Hypertension Father Family Medical History: Hypertension General Exam - General Exam Comments Initial Comments: GENERAL: Patient is well-developed and well-nourished. Patient is nontoxic and in no acute distress. HEAD: Atraumatic, normocephalic. EYES: Pupils equal round and reactive to light, extraocular movements intact, sclera anicteric, conjunctiva are normal. Eyelids were unremarkable. LUNGS: Unlabored respirations. Breath sounds clear to auscultation bilaterally and equal. No wheezes rales or rhonchi. HEART: Regular rate and rhythm without murmurs, rubs or gallops. ABDOMEN: Soft, nontender, normoactive bowel sounds. No guarding, no rebound. No masses appreciated. : Deferred MUSCULOSKELETAL: Normal extremities with adequate strength and normal range of motion, no pitting or edema. No clubbing or cyanosis. NEUROLOGICAL: Patient is alert and oriented x 3. SKIN: Warm, Dry, normal turgor, no rashes or lesions noted. Limitations: no limitations Course Vital Signs 11/18/20 07:33 Pulse Rate 77 Respiratory 16 Rate Blood Pressure 138/77 O2 Sat by Pulse 98 Oximetry Medical Decision Making - Medical Decision Making Patient is a 24-year-old male here with concerns of constipation times one day. Patient has been really anxious after having his appendix out 2 months ago. He has not had a good bowel movement and one day. He was concerned for a blockage. No pain on exam. KUB shows no evidence of free abdominal air or bowel obstruction, moderate amount of stool seen in the colon, radiologist did mention possible bowel thickening involving the sigmoid rectal: However patient has no pain. I discussed these findings with the patient. I recommended MiraLAX [id number] as a stool softener, recommended drinking plenty of water. If his symptoms persist and his concerns persist, recommend following up with the surgeon. He is agreeable to this plan of care and is stable for discharge. Disposition Clinical Impression: Constipation Disposition: HOME SELF-CARE Condition: Stable Instructions (If sedation given, give patient instructions): Constipation (ED) Additional Instructions: Please return to the Emergency Department if symptoms worsen or any other concerns. Recommended MiraLAX daily for 1-2 weeks, increase your water intake. If you're still having concerns, follow up with your surgeon. Is patient prescribed a controlled substance at d/c from ED?: No Referrals: Sheldon Sullivan MD [Primary Care Provider] - 1-2 days Time of Disposition: 08:33
== END 2020-11-18 08:55 | disposition home or self-care (01) ==
LOC: EC 07:32
DX: K59.00 Constipation, unspecified (principal); F17.200 Nicotine dependence, unspecified, uncomplicated; Z90.49 Acquired absence of other specified parts of digestive tract
CPT/HCPCS: 74018; 99284

== ENCOUNTER 2020-12-16 02:19 | Emergency (ER) | payer OTHER ==
--- NOTE | 2020-12-16 02:46 | ED ---
General Adult HPI - General Chief complaint: Abdominal Pain Stated complaint: Hemorrhoids Time Seen by Provider: 12/16/20 02:28 Source: patient, RN notes reviewed Mode of arrival: ambulatory - History of Present Illness Initial comments: 25-year-old male that presents to emergency department complaining of abdominal discomfort on bowel movement. He notes that he thought he might end hemorrhoid after looking up on line. He notes that he went and got Preparation H [id number] at the pharmacy and it has been helping. He notes that his mom suggested witch julita pads but he cannot find them. Patient was complaining about needing a work note so he can get fired. He notes that he is been having bowel issues ever since his appendectomy several months ago. He notes that he would like some stool softeners to help with bowel movements were regular. He notes that he strains often during bowel movement. He denied any other issues or complaints. He was a well-appearing 25-year-old male. He denied any chest pain shortness of breath headache nausea vomiting fever fatigue chills. - Related Data Home Medications Medication Instructions Recorded Confirmed Docusate [Colace] 100 mg PO BID PRN 09/04/20 09/04/20 Previous Rx's Medication Instructions Recorded Amoxic-Pot Clav 500-125 mg 1 tab PO Q12HR 7 Days #14 tab 09/03/20 [Augmentin 500-125 mg] HYDROcodone/APAP 5-325MG [[place] 1 tab PO Q6HR PRN 3 Days #12 tab 09/03/20 5-325] Cetirizine HCl/Pseudoephedrine 1 each PO DAILY #24 tab.er.12h 11/08/20 [Zyrtec-D Tablet] Ondansetron Odt [Zofran Odt] 4 mg PO Q8HR PRN #14 tab 11/08/20 Docusate [Colace] 100 mg PO DAILY 14 Days #14 capsule 12/16/20 Allergies Allergy/AdvReac Type Severity Reaction Status Date / Time No Known Allergies Allergy Verified 12/16/20 02:24 Review of Systems ROS Statement: Those systems with pertinent positive or pertinent negative responses have been documented in the HPI. ROS Other: All systems not noted in ROS Statement are negative. Past Medical History Past Medical History: No Reported History Additional Past Medical History / Comment(s): back pain,scoliosis History of Any Multi-Drug Resistant Organisms: None Reported Past Surgical History: Appendectomy Past Anesthesia/Blood Transfusion Reactions: No Reported Reaction Past Psychological History: Anxiety, Depression Smoking Status: Current every day smoker Past Alcohol Use History: None Reported Past Drug Use History: Marijuana - Past Family History Mother Family Medical History: Hypertension Father Family Medical History: Hypertension General Exam General appearance: alert, in no apparent distress Head exam: Present: atraumatic, normocephalic, normal inspection Eye exam: Present: normal appearance, PERRL, EOMI. Absent: scleral icterus, conjunctival injection, periorbital swelling Neck exam: Present: normal inspection Respiratory exam: Present: normal lung sounds bilaterally. Absent: respiratory distress, wheezes, rales, rhonchi, stridor Cardiovascular Exam: Present: regular rate, normal rhythm, normal heart sounds. Absent: systolic murmur, diastolic murmur, rubs, gallop, clicks GI/Abdominal exam: Present: soft, normal bowel sounds. Absent: distended, tenderness, guarding, rebound, rigid Rectal exam: Present: normal inspection. Absent: hemorrhoids Extremities exam: Present: normal inspection, full ROM, normal capillary refill. Absent: tenderness, pedal edema, joint swelling, calf tenderness Neurological exam: Present: alert, oriented X3 Psychiatric exam: Present: normal affect, normal mood Skin exam: Present: warm, dry, intact, normal color. Absent: rash Course Vital Signs 12/16/20 02:21 Temperature 97.7 F Pulse Rate 75 Respiratory 19 Rate Blood Pressure 132/72 O2 Sat by Pulse 98 Oximetry Medical Decision Making - Medical Decision Making 25-year-old male complaining of possible hemorrhoids. Upon physical exam there was no obvious external hemorrhoids or internal hemorrhoids palpated on rectal exam. Patient requesting stool softeners be sent to pharmacy. Case discussed with Dr. Rivera, patient discharge home with follow-up to primary care. Disposition Clinical Impression: Constipation Disposition: HOME SELF-CARE Condition: Stable Instructions (If sedation given, give patient instructions): Hemorrhoids (ED) Additional Instructions: Please return to the Emergency Department if symptoms worsen or any other concerns. Take stool softeners as prescribed. Increase oral fluids. Increase fiber. Follow-up primary care as needed. Is patient prescribed a controlled substance at d/c from ED?: No Referrals: None,Stated [Primary Care Provider] - 1-2 days Time of Disposition: 02:45
[2020-12-16 03:25] VITALS: BP 148/63; PULSE 57; RESP 18; TEMP 97.8
== END 2020-12-16 03:05 | disposition home or self-care (01) ==
LOC: EC 02:19
DX: K59.00 Constipation, unspecified (principal); F17.200 Nicotine dependence, unspecified, uncomplicated
CPT/HCPCS: 99283

== ENCOUNTER → 2022-12-24 | Outpatient (CLI) | payer OTHER ==
--- NOTE | 2022-12-24 14:31 | CT ---
EXAMINATION TYPE: CT abdomen w con CT DLP: 746 mGycm, Automated exposure control for dose reduction was used. DATE OF EXAM: 12/24/2022 12:46 PM COMPARISON: 09/02/2020 CLINICAL INDICATION:Male, 27 years old with history of R1011 RIGHT UPPER QUADRANT PAIN; TECHNIQUE: Axial CT of the abdomen Sagittal and coronal reformats were created on a separate worksta tion. Contrast used: 100 cc Isovue-300 Oral contrast used: Oral contrast utilized. FINDINGS: LOWER CHEST: Unremarkable ABDOMEN LIVER: Unremarkable GALLBLADDER AND BILE DUCTS: Unremarkable. PANCREAS: Unremarkable. SPLEEN: Unremarkable. ADRENAL GLANDS: Unremarkable. KIDNEYS AND URETERS: No evidence of hydronephrosis or renal calculus. The ureters are unremarkable. STOMACH AND BOWEL: No evidence of bowel obstruction. PERITONEUM/RETROPERITONEUM: No evidence of pneumoperitoneum or free fluid. VASCULATURE: No evidence of aortic aneurysm. MUSCULOSKELETAL: No acute osseous abnormalities LYMPH NODES: No gross evidence for lymphadenopathy. SOFT TISSUE/ABDOMINAL WALL: Unremarkable IMPRESSION: No evidence for acute right upper quadrant process. The gallbladder has, appendix within normal limit s. No evidence for obstructive uropathy. No renal calculi.
== END | disposition home or self-care (01) ==
LOC: RADCTMAIN 11:50
PROVIDERS: ATTEND Family Medicine
DX: R10.11 Right upper quadrant pain (principal); K92.1 Melena
CPT/HCPCS: 74160; Q9967

== ENCOUNTER → 2023-11-06 | Outpatient (CLI) | payer OTHER ==
--- NOTE | 2023-11-06 23:18 | US ---
EXAMINATION TYPE: US abdomen complete DATE OF EXAM: 11/06/2023 COMPARISON: CT & US 2022 CLINICAL INDICATION: Male, 27 years old with history of K59.00 CONSTIPATION Z90.49 HX APPENDECTOMY; A bdomen pain TECHNIQUE: Multiple sonographic images of the abdomen are obtained. FINDINGS: EXAM MEASUREMENTS: Liver Length: 14.5 cm Gallbladder Wall: 0.2 cm CBD: 0.3 cm Spleen: 11.9 cm Right Kidney: 9.8 x 4.1 x 5.0 cm Left Kidney: 10.5 x 5.5 x 4.7 cm Pancreas: wnl Liver: wnl Gallbladder: wnl Evidence for sonographic Ayala's sign: no CBD: wnl Spleen: wnl Right Kidney: wnl Left Kidney: wnl Upper IVC: wnl Abd Aorta: wnl IMPRESSION: 1. Right upper quadrant ultrasound is unremarkable.
== END | disposition home or self-care (01) ==
LOC: RADUSWWP 08:48
PROVIDERS: ATTEND Family Medicine
DX: K59.00 Constipation, unspecified (principal); Z90.49 Acquired absence of other specified parts of digestive tract
CPT/HCPCS: 76700

== ENCOUNTER 2024-03-20 20:23 | Emergency (ER) | payer OTHER ==
[2024-03-20 20:30] VITALS: TEMP 98.2
--- NOTE | 2024-03-20 21:02 | ED ---
Abdominal Pain HPI - General Chief Complaint: Abdominal Pain Stated Complaint: abd pain Time Seen by Provider: 03/20/24 20:35 Source: patient, family (Sister), RN notes reviewed Mode of arrival: ambulatory Limitations: no limitations - History of Present Illness Initial Comments: This is a 28-year-old male presenting with right flank pain (07/05) x 3 hours. Patient endorses intermittent cramping in the region for the past 6 months that occasionally radiates to the right upper quadrant. Endorses associated nausea and history of chronic diarrhea. Denies urinary symptoms, hematuria, melena, hematochezia. Endorses history of appendectomy. Patient denies fever, chills, body aches, constant chest pain, dyspnea, vomiting, dizziness. Patient states pain has been negatively affecting his personal life and ability to work. MD Complaint: flank pain Onset/Timin -: hour(s) Location: R flank Radiation: RUQ Severity scale (1-10): 3 Quality: cramping Consistency: intermittent Associated Symptoms: nausea, diarrhea - Related Data Home Medications Medication Instructions Recorded Confirmed Docusate [Colace] 100 mg PO BID PRN 09/04/20 09/04/20 Previous Rx's Medication Instructions Recorded Amoxic-Pot Clav 500-125 mg 1 tab PO Q12HR 7 Days #14 tab 09/03/20 [Augmentin 500-125 mg] HYDROcodone/APAP 5-325MG [[place] 1 tab PO Q6HR PRN 3 Days #12 tab 09/03/20 5-325] Cetirizine HCl/Pseudoephedrine 1 each PO DAILY #24 tab.er.12h 11/08/20 [Zyrtec-D Tablet] Ondansetron Odt [Zofran Odt] 4 mg PO Q8HR PRN #14 tab 11/08/20 Docusate [Colace] 100 mg PO DAILY 14 Days #14 capsule 12/16/20 Cyclobenzaprine [Flexeril] 10 mg PO TID PRN #12 tab 03/20/24 Allergies Allergy/AdvReac Type Severity Reaction Status Date / Time No Known Allergies Allergy Verified 03/20/24 20:30 Review of Systems ROS Statement: Those systems with pertinent positive or pertinent negative responses have been documented in the HPI. ROS Other: All systems not noted in ROS Statement are negative. Past Medical History Past Medical History: No Reported History Additional Past Medical History / Comment(s): back pain,scoliosis History of Any Multi-Drug Resistant Organisms: None Reported Past Surgical History: Appendectomy Past Anesthesia/Blood Transfusion Reactions: No Reported Reaction Past Psychological History: Anxiety, Depression Smoking Status: Current every day smoker Past Alcohol Use History: None Reported Past Drug Use History: Marijuana - Past Family History Mother Family Medical History: Hypertension Father Family Medical History: Hypertension General Exam Limitations: no limitations General appearance: alert, in no apparent distress Head exam: Present: atraumatic, normocephalic, normal inspection Eye exam: Present: normal appearance, PERRL, EOMI. Absent: scleral icterus, conjunctival injection, periorbital swelling ENT exam: Present: normal exam, mucous membranes moist Neck exam: Present: normal inspection. Absent: tenderness, meningismus, lymphad enopathy Respiratory exam: Present: normal lung sounds bilaterally. Absent: respiratory distress, wheezes, rales, rhonchi, stridor Cardiovascular Exam: Present: regular rate, normal rhythm, normal heart sounds. Absent: systolic murmur, diastolic murmur, rubs, gallop, clicks GI/Abdominal exam: Present: soft, normal bowel sounds, other (Positive for right flank musculoskeletal tenderness and muscle spasm noted, reproducing patient's current complaint). Absent: distended, tenderness (Negative abdominal tenderness, tympanic tenderness or guarding. Negative Ayala sign.), guarding, rebound, rigid Extremities exam: Present: normal inspection, full ROM, normal capillary refill. Absent: tenderness, pedal edema, joint swelling, calf tenderness Back exam: Present: normal inspection Neurological exam: Present: alert, oriented X3, CN II-XII intact Psychiatric exam: Present: normal affect, normal mood Skin exam: Present: warm, dry, intact, normal color. Absent: rash Course Vital Signs 03/20/24 03/20/24 20:25 22:03 Temperature 98.2 F Pulse Rate 98 60 Respiratory 18 16 Rate Blood Pressure 152/84 123/65 O2 Sat by Pulse 99 97 Oximetry Medical Decision Making - Medical Decision Making Was pt. sent in by a medical professional or institution (, PA, [employer], urgent care, hospital, or senior care...) When possible be specific @ -[No] Did you speak to anyone other than the patient for history (EMS, parent, family, police, friend...)? What history was obtained from this source @ -[No] Did you review nursing and triage notes (agree or disagree)? Why? @ -[I reviewed and agree with nursing and triage notes] Were old charts reviewed (outside hosp., previous admission, EMS record, old EKG, old radiological studies, urgent care reports/EKG's, senior care records)? Report findings @ -[No old charts were reviewed] Differential Diagnosis (chest pain, altered mental status, abdominal pain women, abdominal pain men, vaginal bleeding, weakness, fever, dyspnea, syncope, headache, dizziness, GI bleed, back pain, seizure, CVA, palpatations, mental health, musculoskeletal)? @ -Differential Abdominal Pain Men: Appendicitis, cholecystitis, diverticulosis, ischemic bowel, pancreatitis, hepatitis, UTI, gastroenteritis, AAA, incarcerated hernia, bowel obstruction, constipation, inflammatory bowel, hepatitis, peptic ulcer disease, splenic infarction, perforated viscus, testicular torsion, this is not meant to be an all-inclusive list EKG interpreted by me (3pts min.). @ -Not done X-rays interpreted by me (1pt min.). @ -[None done] CT interpreted by me (1pt min.). @ -[None done] U/S interpreted by me (1pt. min.). @ -[None done] What testing was considered but not performed or refused? (CT, X-rays, U/S, labs)? Why? @ -[None] What meds were considered but not given or refused? Why? @ -[None] Did you discuss the management of the patient with other professionals (professionals i.e. , PA, [employer], lab, RT, psych nurse, social media manager, orthodontic technician, teacher, facility security officer, case management associate)? Give summary @ -[No] Was smoking cessation discussed for >3mins.? @ -[No] Was critical care preformed (if so, how long)? @ -[No] Were there social determinants of health that impacted care today? How? (Homelessness, low income, unemployed, alcoholism, drug addiction, transportation, low edu. Level, literacy, decrease access to med. care, shelter, rehab)? @ -[No] Was there de-escalation of care discussed even if they declined (Discuss DNR or withdrawal of care, Hospice)? DNR status @ -[No] What co-morbidities impacted this encounter? (DM, HTN, Smoking, COPD, CAD, Cancer, CVA, ARF, Chemo, Hep., AIDS, mental health diagnosis, sleep apnea, morbid obesity)? @ -[None] Was patient admitted / discharged? Hospital course, mention meds given and route, prescriptions, significant lab abnormalities, going to OR and other pertinent info. @ -[hospital course] Undiagnosed new problem with uncertain prognosis? @ -[No] Drug Therapy requiring intensive monitoring for toxicity (Heparin, Nitro, Insulin, Cardizem)? @ -[No] Were any procedures done? @ -[No] Diagnosis/symptom? @ -[default] Acute, or Chronic, or Acute on Chronic? @ -Acute on chronic Uncomplicated (without systemic symptoms) or Complicated (systemic symptoms)? @ -Uncomplicated Side effects of treatment? @ -[No] Exacerbation, Progression, or Severe Exacerbation? @ -Severe exacerbation Poses a threat to life or bodily function? How? (Chest pain, [place], [place], pneumonia, PE, COPD, DKA, ARF, appy, cholecystitis, CVA, Diverticulitis, Homicidal, Suicidal, threat to staff... and all critical care pts) @ -[No] - Lab Data Result diagrams: 03/20/24 21:03/20/24 21:01 Lab Results 03/20/24 03/20/24 03/20/24 Range/Units 21:01 21: 21:01 WBC 5.3 (3.8-10.6) k/uL RBC 5.25 (4.30-5.90) m/uL Hgb 16.0 (13.0-17.5) gm/dL Hct 48.0 (39.0-53.0) % MCV 91.4 (80.0-100.0) fL MCH 30.5 (25.0-35.0) pg MCHC 33.3 (31.0-37.0) g/dL RDW 12.2 (11.5-15.5) % Plt Count 193 (150-450) k/uL MPV 7.8 Neutrophils % 71 % Lymphocytes % 17 % Monocytes % 7 % Eosinophils % 2 % Basophils % 1 % Neutrophils # 3.8 (1.3-7.7) k/uL Lymphocytes # 0.9 L (1.0-4.8) k/uL Monocytes # 0.3 (0-1.0) k/uL Eosinophils # 0.1 (0-0.7) k/uL Basophils # 0.0 (0-0.2) k/uL Sodium 138 (137-145) mmol/L Potassium 4.2 (3.5-5.1) mmol/L Chloride 102 (98-107) mmol/L Carbon Dioxide 26 (22-30) mmol/L Anion Gap 10 mmol/L BUN 10 (9-20) mg/dL Creatinine 1.11 (0.66-1.25) mg/dL Est GFR (CKD-EPI)AfAm >90 (>60 ml/min/1.73 sqM) Est GFR (CKD-EPI)NonAf >90 (>60 ml/min/1.73 sqM) Glucose 123 H (74-99) mg/dL Plasma Lactic Acid Karel 2.0 (0.7-2.0) mmol/L Calcium 9.7 (8.4-10.2) mg/dL Total Bilirubin 0.5 (0.2-1.3) mg/dL AST 23 (17-59) U/L ALT 16 (4-49) U/L Alkaline Phosphatase 61 (38-126) U/L Total Protein 8.1 (6.3-8.2) g/dL Albumin 5.1 H (3.5-5.0) g/dL Amylase 57 (30-110) U/L Lipase 69 (23-300) U/L Urine Color Urine Appearance (Clear) Urine pH (5.0-8.0) Ur Specific [place] (1.001-1.035) Urine Protein (Negative) Urine Glucose (UA) (Negative) Urine Ketones (Negative) Urine Blood (Negative) Urine Nitrite (Negative) Urine Bilirubin (Negative) Urine Urobilinogen (<2.0) mg/dL Ur Leukocyte Esterase (Negative) Urine RBC (0-5) /hpf Urine WBC (0-5) /hpf Ur Squamous Epith Cells (0-4) /hpf Hyaline Casts (0-2) /lpf Urine Mucus (None) /hpf 03/20/ Range/Units 21:12 WBC (3.8-10.6) k/uL RBC (4.30-5.90) m/uL Hgb (13.0-17.5) gm/dL Hct (39.0-53.0) % MCV (80.0-100.0) fL MCH (25.0-35.0) pg MCHC (31.0-37.0) g/dL RDW (11.5-15.5) % Plt Count (150-450) k/uL MPV Neutrophils % % Lymphocytes % % Monocytes % % Eosinophils % % Basophils % % Neutrophils # (1.3-7.7) k/uL Lymphocytes # (1.0-4.8) k/uL Monocytes # (0-1.0) k/uL Eosinophils # (0-0.7) k/uL Basophils # (0-0.2) k/uL Sodium (137-145) mmol/L Potassium (3.5-5.1) mmol/L Chloride (98-107) mmol/L Carbon Dioxide (22-30) mmol/L Anion Gap mmol/L BUN (9-20) mg/dL Creatinine (0.66-1.25) mg/dL Est GFR (CKD-EPI)AfAm (>60 ml/min/1.73 sqM) Est GFR (CKD-EPI)NonAf (>60 ml/min/1.73 sqM) Glucose (74-99) mg/dL Plasma Lactic Acid Karel (0.7-2.0) mmol/L Calcium (8.4-10.2) mg/dL Total Bilirubin (0.2-1.3) mg/dL AST (17-59) U/L ALT (4-49) U/L Alkaline Phosphatase (38-126) U/L Total Protein (6.3-8.2) g/dL Albumin (3.5-5.0) g/dL Amylase (30-110) U/L Lipase (23-300) U/L Urine Color Yellow Urine Appearance Clear (Clear) Urine pH 6.0 (5.0-8.0) Ur Specific [place] 1.029 (1.001-1.035) Urine Protein 2+ H (Negative) Urine Glucose (UA) Negative (Negative) Urine Ketones Negative (Negative) Urine Blood Negative (Negative) Urine Nitrite Negative (Negative) Urine Bilirubin Negative (Negative) Urine Urobilinogen <2.0 (<2.0) mg/dL Ur Leukocyte Esterase Negative (Negative) Urine RBC 1 (0-5) /hpf Urine WBC 4 (0-5) /hpf Ur Squamous Epith Cells 1 (0-4) /hpf Hyaline Casts 16 H (0-2) /lpf Urine Mucus Many H (None) /hpf Disposition Clinical Impression: Spasm of abdominal muscles of right side Disposition: HOME SELF-CARE Condition: Good Instructions (If sedation given, give patient instructions): Muscle Spasm (ED) Prescriptions: Cyclobenzaprine [Flexeril] 10 mg PO TID PRN #12 tab PRN Reason: Spasms Is patient prescribed a controlled substance at d/c from ED?: No Referrals: Sheldon Sullivan MD [Primary Care Provider] - 1-2 days Time of Disposition: 22:35
[2024-03-20] MEDS: ORPHENADRINE 30 MG/ML 2 ML VIAL IM STA (21:09)
[2024-03-20 21:10] LABS: Basophils % (A) 1 %; Eosinophils # (A) 0.1 k/uL (0-0.7); Eosinophils % (A) 2 %; Lymphocytes # (A) 0.9 k/uL (1.0-4.8); Lymphocytes % (A) 17 %; MCH 30.5 pg (25.0-35.0); MCHC 33.3 g/dL (31.0-37.0); MCV 91.4 fL (80.0-100.0); Mean Platelet Volume 7.8; Monocytes # (A) 0.3 k/uL (0-1.0); Monocytes % (A) 7 %; Neutrophils # (A) 3.8 k/uL (1.3-7.7); Neutrophils % (A) 71 %; Platelet Count 193 k/uL (150-450); RBC 5.25 m/uL (4.30-5.90); RDW 12.2 % (11.5-15.5); WBC 5.3 k/uL (3.8-10.6)
[2024-03-20] MEDS: ONDANSETRON 4 MG/2 ML VIAL IVP STA (21:10)
[2024-03-20] MEDS: KETOROLAC 15 MG/ML 1 ML VIAL IVP STA (21:10)
[2024-03-20 21:15] LABS: ALT 16 U/L (4-49); AST 23 U/L (17-59); African American GFR (CKD) >90 (>60 ml/min/1.73 sqM); Albumin 5.1 g/dL (3.5-5.0); Alkaline Phosphatase 61 U/L (38-126); Amylase 57 U/L (30-110); Anion Gap 10 mmol/L; Blood Urea Nitrogen 10 mg/dL (9-20); Calcium 9.7 mg/dL (8.4-10.2); Carbon Dioxide 26 mmol/L (22-30); Chloride 102 mmol/L (98-107); Glucose 123 mg/dL (74-99); Lipase 69 U/L (23-300); Non-African American GFR(CKD) >90 (>60 ml/min/1.73 sqM); Potassium 4.2 mmol/L (3.5-5.1); Sodium 138 mmol/L (137-145); Total Bilirubin 0.5 mg/dL (0.2-1.3); Total Protein 8.1 g/dL (6.3-8.2)
[2024-03-20 21:43] LABS: Appearance,Urine Clear (Clear); Bilirubin,Urine Negative (Negative); Blood,Urine Negative (Negative); Color,Urine Yellow; Glucose,Urine (UA) Negative (Negative); Hyaline Casts,Urine 16 /lpf (0-2); Ketones,Urine Negative (Negative); Leukocyte Esterase,Urine Negative (Negative); Mucus,Urine Many /hpf; Nitrite,Urine Negative (Negative); Protein,Urine 2+ (Negative); RBC,Urine 1 /hpf (0-5); Specific Gravity,Urine 1.029 (1.001-1.035); Squamous Epithelial Cell,Urine 1 /hpf (0-4); Urobilinogen,Urine <2.0 mg/dL (<2.0); WBC,Urine 4 /hpf (0-5)
[2024-03-20 22:07] VITALS: BP 123/65; PULSE 60; RESP 16
--- NOTE | 2024-03-20 22:07 | CT ---
EXAMINATION TYPE: CT abdomen pelvis w con DATE OF EXAM: 03/20/2024 9:33 PM COMPARISON: Previous CT abdomen 12/24/2022. CLINICAL INDICATION: Male, 28 years old with history of Right side abdominal pain; Right side abdomin al pain. Nausea and vomiting. TECHNIQUE: Axial CT abdomen pelvis w con;Sagittal and coronal reformats were created on a separate w orkstation. Contrast used:100 mL of Isovue 300 with IV Contrast Oral contrast used: without Oral Contrast CT DLP: 694.4 mGycm, Automated exposure control for dose reduction was used. FINDINGS: LOWER CHEST: Unremarkable ABDOMEN LIVER: Unremarkable GALLBLADDER AND BILE DUCTS: Unremarkable. PANCREAS: Unremarkable. SPLEEN: Unremarkable. ADRENAL GLANDS: Unremarkable. KIDNEYS AND URETERS: No evidence of hydronephrosis or renal calculus. The ureters are unremarkable. PELVIS BLADDER: No evidence for wall thickening or mass given limitations of exam. REPRODUCTIVE: Unremarkable. ABDOMEN & PELVIS STOMACH AND BOWEL: Stomach and duodenum are unremarkable. No evidence of bowel obstruction. Appendix surgically absent. PERITONEUM/RETROPERITONEUM: No evidence of pneumoperitoneum or free fluid. VASCULATURE: No evidence of aortic aneurysm. MUSCULOSKELETAL: No acute osseous abnormalities LYMPH NODES: No gross evidence for lymphadenopathy. SOFT TISSUE/ABDOMINAL WALL: Unremarkable IMPRESSION: No acute abnormality in the abdomen/pelvis or CT findings to explain reported symptoms. [facility], , 03/20/2024 10:04 PM
== END 2024-03-20 22:44 | disposition home or self-care (01) ==
LOC: EC 20:23
DX: M62.838 Other muscle spasm (principal); F17.200 Nicotine dependence, unspecified, uncomplicated
CPT/HCPCS: 36415; 80053; 82150; 83605; 83690; 85025; 81001; 74177; 99284; 96374; 96375; 96372; J2360; J2405; J1885; Q9967

== ENCOUNTER 2024-06-11 07:54 | Day surgery (SDC) | payer OTHER ==
[2024-06-11] MEDS: IV FLUID CONTINUATION 1,000 ML IV ONE (08:16)
[2024-06-11 08:21] VITALS: TEMP 97.5
[2024-06-11] MEDS: LACTATED RINGERS 1,000 ML IV SCH (08:43)
[2024-06-11] MEDS: MIDAZOLAM 2 MG/2 ML VIAL IV STA (08:45)
[2024-06-11] MEDS ORDERED: PROPOFOL 10 MG/ML 20 ML VIAL IV ONE (08:57)
[2024-06-11] MEDS ORDERED: LIDOCAINE 1% INJ 10MG/ML (20 ML MDV) ONE (08:57)
--- NOTE | 2024-06-11 09:18 | P.PCN ---
Date of Procedure: 06/11/24 Procedure(s) Performed: Brief history: Patient is a pleasant 28-year-old white male scheduled for an elective upper endoscopy as well as colonoscopy as a part of evaluation of abdominal pain, intermittent nausea and change in bowel habits for the last 3 to 4 months duration. Initially had severe diarrhea that lasted for 2 months and for the last few weeks having severe constipation. He went to the emergency room a couple of different occasions and had a CT of the abdomen pelvis done that r was unremarkable. Subsequently had a gallbladder ultrasound done that showed possible gallstones. Procedure performed: Esophagogastroduodenoscopy with biopsy Colonoscopy with biopsy Preoperative diagnosis: Abdominal pain, nausea, change in bowel habits of 4 months duration Anesthesia: MAC Procedure: After informed consent was obtained from the patient was brought into the endoscopy unit and IV sedation was administered by anesthesia under continuous monitoring. Initially upper endoscopy was done. The Olympus GF 160 video endoscope was inserted inserted into the mouth and esophagus intubated without any difficulty and was gradually advanced into the stomach and duodenum and carefully examined. The bulb and second part of the duodenum appeared normal. Biopsies were done from the duodenum rule out celiac disease. The scope was then withdrawn into the stomach adequately insufflated with air and upon careful examination the antrum had mild erythema consistent with gastritis and biopsies were done from this area. Mucosa of the body, cardia and fundus appeared normal. The scope was then withdrawn into the esophagus. The GE junction was located at 40 cm to the incisors. It appeared regular with no erythema erosions or ulcerations. Biopsies were done from the distal esophagus rule out reflux esophagitis. Rest of the esophagus appeared normal. Patient tolerated the procedure well. At this time the patient continued to remain sedation. Initial digital rectal examination was normal. Olympus CF 160 video colonoscope was then inserted into the rectum and gradually advanced to the cecum without any difficulty. Careful examination was performed as the scope was gradually being withdrawn. The prep was excellent. The cecum, ascending colon, transverse colon, descending colon, sigmoid colon and rectum appeared normal. Random biopsies were done from the ascending and descending colon to microscopic/collagenous colitis. Retroflexion was performed in the rectum and no lesions were noted. Patient tolerated the procedure well. Impression: 1. Upper endoscopy revealed mild antral gastritis but notes of esophagitis or peptic ulcer disease 2. Colonoscopy was within normal limits with no evidence of colorectal neoplasia Recommendations: Findings of this examination were discussed with the patient as well as his family. He was advised to follow-up with the biopsy results. Follow-up in the office in 2 weeks.
[2024-06-11 09:30] VITALS: RESP 16
[2024-06-11 09:40] VITALS: BP 104/55; PULSE 62
== END 2024-06-11 10:20 | disposition home or self-care (01) ==
LOC: ORWHC2ENDO 07:54
PROVIDERS: ATTEND Internal Medicine Gastroenterology
DX: K29.50 Unspecified chronic gastritis without bleeding (principal); K29.80 Duodenitis without bleeding; K21.00 Gastro-esophageal reflux disease with esophagitis, without bleeding; M41.9 Scoliosis, unspecified; F17.290 Nicotine dependence, other tobacco product, uncomplicated; F41.9 Anxiety disorder, unspecified; F32.A Depression, unspecified; Z79.899 Other long term (current) drug therapy
CPT/HCPCS: 88305; 88342; 45380; 43239; J2250; J2003; J2704

== ENCOUNTER → 2024-07-05 | Outpatient (CLI) | payer OTHER ==
--- NOTE | 2024-07-05 16:50 | NM ---
EXAMINATION TYPE: NM hepatobiliary w EF DATE OF EXAM: 07/05/2024 COMPARISON: Gallbladder ultrasound June 05, 2024 CLINICAL INDICATION: Male, 28 years old with history of R10.9 ABDOMINAL PAIN; epigastric pain with he artburn-like symptoms and nausea. TECHNIQUE: After the intravenous administration of 5.26 mCi Tc 99m Mebrofenin hepatobiliary scintigra phy is performed. Immediate images post injection. FINDINGS: There is satisfactory initial accumulation of tracer by the liver. The gallbladder is visualized wit hin 10 minutes. The small bowel activity is noted within 40 minutes. At one hour 8 ounces of oral e nsure plus is given to mimic CCK and gallbladder ejection fraction is calculated at 60 %, in the norm al range. Therefore there is no scintigraphic evidence of cystic or common bile duct obstruction to suggest acute cholecystitis or gallbladder dyskinesia. IMPRESSION: Exam is within normal limits. [facility], , 07/05/2024 4:47 PM
== END | disposition home or self-care (01) ==
LOC: RADNMMAIN 12:12
PROVIDERS: ATTEND Internal Medicine Gastroenterology
DX: R10.13 Epigastric pain (principal); R12 Heartburn
CPT/HCPCS: 78226; A9537